=== PATIENT | female | born 1985 | race American Indian/Alaskan Native ===

== ENCOUNTER 2018-07-18 09:11 | Emergency (ER) | payer OTHER ==
[2018-07-18 09:20] VITALS: BP 127/82
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
[2018-07-18] MEDS ORDERED: IBUPROFEN PO ONE (10:08)
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
== END 2018-07-18 11:47 | disposition left against medical advice (07) ==
LOC: ED 09:11
DX: S80.212A Abrasion, left knee, initial encounter (principal); R51 Headache; V49.3XXA Car occupant (driver) (passenger) injured in unspecified nontraffic accident, initial encounter; Y93.89 Activity, other specified; Y99.8 Other external cause status; Y92.410 Unspecified street and highway as the place of occurrence of the external cause
CPT/HCPCS: 99283